=== PATIENT | female | born 1980 | race Caucasian/White ===

== ENCOUNTER → 2016-10-31 | Outpatient (CLI) | payer OTHER | LOC: CIMAGING 15:06 | PROVIDERS: ATTEND Obstetrics & Gynecology | DX: Z33.1 Pregnant state, incidental (principal); N64.52 Nipple discharge | CPT/HCPCS: 76641-PO ==

== ENCOUNTER 2016-11-17 14:53 | Inpatient (IN) | payer OTHER ==
[2016-11-17] MEDS ORDERED: OLIVE OIL 118 ML BTL MISC PRN (15:19)
[2016-11-17] MEDS ORDERED: EPSOM SALT 454 GM TP PRN (15:19)
[2016-11-17] MEDS ORDERED: LIDOCAINE 1% 30 ML SDV SC PRN (15:19)
[2016-11-17] MEDS ORDERED: TERBUTALINE SULFATE 1 MG/ML VIAL IV PRN (15:19)
[2016-11-17] MEDS ORDERED: OXYTOCIN/RINGERS LACTATE 1,000 ML IV PRN (15:19)
[2016-11-17] MEDS ORDERED: LR 1,000 ML IV PRN (15:19)
[2016-11-17 15:39] LABS: % IMMATURE GRANULYOCYTES 0.4 % (0.0-1.1); ABSOLUTE IMMATURE GRANULOCYTES 0.05 10^3/uL (0.00-0.10); ADD DIFF? NO; ADD MORPH? NO; ADD SCAN? NO; ATYPICAL LYMPHOCYTE FLAG 0 (0-99); FRAGMENT RBC FLAG 0 (0-99); HEMATOCRIT 38.4 % (38.0-47.0); HEMOGLOBIN 12.9 g/dL (12.6-16.3); LEFT SHIFT FLG 0 (0-99); LIPEMIA HEMOLYSIS FLAG 80 (0-99); MEAN CELL HEMOGLOBIN 31.1 pg (27.9-34.1); MEAN CELL HEMOGLOBIN CONCENTR. 33.6 g/dL (32.4-36.7); MEAN CELL VOLUME 92.5 fL (81.5-99.8); MEAN PLATELET VOLUME 9.7 fL (8.7-11.7); PLATELET CLUMPS FLAG 0 (0-99); PLATELET COUNT 217 10^3/uL (150-400); RED BLOOD CELL COUNT 4.15 10^6/uL (4.18-5.33); RED CELL DISTRIBUTION WIDTH 13.1 % (11.5-15.2)
[2016-11-17] MEDS ORDERED: AMMONIA AROMATIC 1 EACH AMP IH ONE (15:44)
[2016-11-17] MEDS ORDERED: OLIVE OIL 118 ML BTL ONE (15:44)
[2016-11-17] MEDS ORDERED: LIDOCAINE 1% 30 ML SDV ONE (15:44)
[2016-11-17] MEDS ORDERED: MISOPROSTOL 200 MCG TAB ONE (15:45)
[2016-11-17] MEDS ORDERED: OXYTOCIN 10 UNIT/ML VIAL ONE (15:45)
[2016-11-17] MEDS ORDERED: TERBUTALINE SULFATE 1 MG/ML VIAL ONE (15:45)
[2016-11-17] MEDS ORDERED: OXYTOCIN/RINGERS LACTATE 500 ML IV SCH (16:00)
--- NOTE | 2016-11-17 17:07 | GHP ---
[f rep st] PREOP HISTORY AND PHYSICAL DATE OF ADMISSION: 11/17/2016 ADMISSION DIAGNOSIS: Intrauterine at 37-2/7 weeks' gestation with spontaneous rupture of the membranes. HISTORY OF PRESENT ILLNESS: The patient is a 36-year-old, 2, para 1-0-0 -1, with a last menstrual period of 02/29/2016 and an EDC of 12/06/2016 she reports an episode of a large gush of fluid this morning at 6 a.m. upon waking, and continuing leaking of clear fluid ever since. She has minimal irregular contractions. 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 When she was assessed at [facility] , she had a positive pool, amnio, and fern. Cervix was 2, 90%, -2. heart tones are in the 120s, reactive category 1. She is jem irregularly. Her group B strep is negative. She will be admitted for augmentation of labor due to spontaneous rupture of membranes without active labor. RISK FACTORS: She is Rh negative. She is advanced maternal age. She has had normal genetic testing in this . She has history of a LEEP to her cervix x2 but had a term delivery with her first baby since. She has a history of chronic back pain and bulging disks. No other risk factors. PAST OBSTETRICAL HISTORY: In October 2014 she had a viable female, 6 pounds 11 ounces, vaginal delivery without complications, and this is her 2nd . PAST GYNECOLOGICAL HISTORY: She has had abnormal Pap's and had a LEEP x2 with normal Pap's since her LEEP. No history of any other STDs or other complications. MEDICAL PROBLEMS: Bulging disk in her back. She is managed by a chiropractor. No past surgical history. ALLERGIES: Reglan, unknown reaction. MEDICATIONS: Include vitamins and she was on Zofran p.r.n. in the 1st trimester; none now. LABORATORY DATA: She is A negative, antibody negative, RPR nonreactive, rubella immune, hepatitis negative, HIV negative. Cystic fibrosis, SMA, fragile X and Hoahaoism panel were negative. Pap normal. Gonorrhea and chlamydia normal. Verify normal. 1-hour GTT was normal. GBS was negative. SOCIAL HISTORY: She is . She lives with her and her daughter. 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 She denies tobacco, alcohol, and drug use. FAMILY HISTORY: Her father has chronic hypertension. Paternal grandfather and maternal grandmother had myocardial infarctions. She has cousins with breast and ovarian cancer. That is all for her medical history. OBJECTIVE: VITAL SIGNS: Today she is afebrile. Vital signs are stable. heart tones are 120s, reactive, with moderate variability, category 1. She is jem irregularly. Cervix was 2, 90%, and -2. She is ruptured for clear fluid. ASSESSMENT/PLAN: 36-year-old 2, para 1-0-0-1, at 37-2/7 weeks' gestation, admitted for Pitocin augmentation of labor. The patient will have active labor management. status is reassuring. /[id number]/MODL MTDD
--- NOTE | 2016-11-17 19:22 | OBPROG ---
OBG Progress Note Assessment/Plan: Assessment: 36 y/o @ 37 2/7 weeks with SROM Plan: Will continue pitocin augmentation. status reassuring. 11/17/16 19:21 Subjective: Pt is feeling mild cramping and back pain with contractions. She is still leaking clear fluid. Objective: 11/17/16 15:15 Patient ABO/Rh A NEGATIVE 11/17/16 15:15 - SVE Dilation (cm): 2 Effacement (%): 80 Station: -2 Current Contraction Pattern: Regular (Q 3-4) FHR (bpm): 120 FHR Pattern Variability: Moderate FHR Category: 1 Membranes: SROM Amniotic Fluid Color: Clear ICD10 Worksheet Patient Problems: Problems Problem Status Onset (spontaneous vaginal delivery) Acute
--- NOTE | 2016-11-17 21:43 | OBPROG ---
OBG Progress Note Assessment/Plan: Assessment: 36 y/o @ 37 2/7 weeks with SROM Plan: Will continue pitocin augmentation. Pt desires an epidural now, but anesthesia is occupied in an emergency. She tried NO without relief, will give IV Fentanyl for now to help until she can get her epidural. 11/17/16 19:21 11/17/16 21:41 Subjective: Pt is feeling stronger contractions now, continues to have LOF clear. Objective: 11/17/16 15:15 Patient ABO/Rh A NEGATIVE 11/17/16 15:15 - SVE Dilation (cm): 4 Effacement (%): 90 Station: -2 Current Contraction Pattern: Regular (Q 3-4) FHR (bpm): 120 FHR Pattern Variability: Moderate FHR Category: 1 Membranes: SROM Amniotic Fluid Color: Clear ICD10 Worksheet Patient Problems: Problems Problem Status Onset (spontaneous vaginal delivery) Acute
[2016-11-17] MEDS ORDERED: fentaNYL 100 MCG/2 ML INJ ONE (21:46)
[2016-11-17] MEDS: fentaNYL 100 MCG/2 ML INJ IVP PRN ×2 (21:49→22:32)
[2016-11-17] MEDS ORDERED: PHENYLEPHRINE HCL 100 MCG/ML SYR ONE (22:25)
[2016-11-17] MEDS ORDERED: BUPIVACAINE 0.25% 30 ML SDV ONE (22:25)
[2016-11-17] MEDS ORDERED: fentaNYL 2MCG/ML/BUP 0.1% RTU 100 ML BAG EP ONE (22:25)
--- NOTE | 2016-11-17 23:28 | OBPROC ---
- Labor and Delivery Onset of Contractions Date: 11/17/16 Onset of Contractions Time: 21:37 Onset of Contractions Type: Augmented Rupture of Membranes Date: 11/17/16 Rupture of Membranes Time: 06:15 Rupture of Membranes Type: Spontaneous Amniotic Fluid Color: Clear Dilation Complete Time: 23:10 Delivery Type: Spontaneous Placenta Delivery Date: 11/17/16 Placenta Delivery Time: 23:17 Episiotomy/Laceration: Other (Specify) (intact perineum) EBL: 150 Complications: None - Medications Labor Augmentation/Induction Meds Used: Pitocin Labor Augmentation/Induction Indication: Other (Specify) (prolonged ROM without active labor contractions) Anesthesia: Epidural, IV Sedation, Other (Specify) (nitrous oxide, IV Fentanyl) - Latta Info Infant A Delivery Date: 11/17/16 Delivery Time: 23:13 Sex of Infant: Female Score (1 Min): 9 Score (5 Min): 9
[2016-11-17] MEDS ORDERED: LR 500 ML IV SCH (23:45)
[2016-11-17] MEDS ORDERED: fentaNYL 2MCG/ML/BUP 0.1% RTU 100 ML EP SCH (23:45)
[2016-11-17] MEDS ORDERED: PHENYLEPHRINE HCL 100 MCG/ML SYR IVP PRN (23:55)
[2016-11-17] MEDS ORDERED: ONDANSETRON 4 MG/2 ML VIAL IVP PRN (23:55)
--- NOTE | 2016-11-18 00:01 | PREANESOB ---
Obstetric Pre-Anesthesia Info - General Info Proposed Procedure: Labor and delivery with pitocin. : 2 Para: 1 WBD: 37 - Info Status: Full Term Monitors: External FHR Baseline (bpm): 130 FHR Pattern: Reassuring - Labor Status Cervical Dilation per last OB SVE: 4 Station per last OB SVE: -2 Rupture of Membranes Time: 06:15 Amniotic Fluid Color: Clear Pitocin: In Use Indications for Labor Analgesia: Augmentation of Labor, Pain Control Labor Epidural: Proposed Anesthesia ROS: Prior labor epidural. Allergies/Adverse Reactions: Allergy/AdvReac Type Severity Reaction Status Date / Time metoclopramide HCl Allergy Intermediate Other-Enter Verified 10/12/14 09:02 [facility] Comments Home Medications: Medication Instructions Recorded 1 tab PO DAILY 10/12/14 Visit Medications: Generic Name Dose Route Start Last Admin Trade Name Freq PRN Reason Stop Dose Admin Fentanyl 50 mcg 11/17/16 21:39 11/17/16 22:32 Sublimaze IVP 11/27/16 21:38 50 mcg Q2HRS PRN Administration Pain, Severe Unable to Take PO Lactated Ringer's 1,000 mls @ 0 mls/hr 11/17/16 15:19 11/17/16 16:25 Lr IV 05/16/17 15:18 1,000 mls PRN PRN Administration SEE PROTOCOL CONDITIONS Protocol Per Protocol Oxytocin/Lactated Ringer's 1,000 mls @ 150 mls/hr 11/17/16 15:19 Pitocin 20 Units/Lr (Premix) IV PRN PRN Post- bleeding Oxytocin/Lactated Ringer's 500 mls @ 2 mls/hr 11/17/16 16:00 11/17/16 16:25 Pitocin 30 Units/Lr (Premix) IV 05/16/17 15:59 500 mls CONT MARTINA Administration Ibuprofen 600 mg 11/17/16 15:19 Motrin PO 05/16/17 15:18 Q6HRS PRN post , inflammation Lidocaine HCl 30 ml 11/17/16 15:19 Lidocaine Hcl 1% SC 05/16/17 15:18 ONCE PRN Episiotomy Magnesium Sulfate 454 gm 11/17/16 15:19 Epsom Salt TP 05/16/17 15:18 PRN PRN perineal discomfort Norton Oil 118 ml 11/17/16 15:19 Sweet Oil MISC 05/16/17 15:18 ONCE PRN preneal massage Terbutaline Sulfate 0.25 mg 11/17/16 15:19 Brethine IV 05/16/17 15:18 ONCE PRN Tachysystole Discontinued Medications Generic Name Dose Route Start Last Admin Trade Name Freq PRN Reason Stop Dose Admin Ammonia (Aromatic Spirit) Confirm 11/17/16 15:44 Ammonia Aromatic Administered 11/17/16 15:45 Dose 1 each IH .STK-MED ONE Bupivacaine HCl Confirm 11/17/16 22:25 Sensorcaine 0.25% Sdv Administered 11/17/16 22:26 Dose 30 ml .ROUTE .STK-MED ONE Fentanyl Confirm 11/17/16 21:46 Sublimaze Administered 11/17/16 21:47 Dose 100 mcg .ROUTE .STK-MED ONE Fentanyl/Bupivacaine HCl Confirm 11/17/16 22:25 Fentanyl/Bupivacaine/Ns 2 Mcg/Ml 0.1% (Premix Administered 11/17/16 22:26 Dose 100 ml EP .STK-MED ONE Lidocaine HCl Confirm 11/17/16 15:44 Lidocaine Hcl 1% Administered 11/17/16 15:45 Dose 30 ml .ROUTE .STK-MED ONE Misoprostol Confirm 11/17/16 15:45 Cytotec Administered 11/17/16 15:46 Dose 800 mcg .ROUTE .STK-MED ONE Norton Oil Confirm 11/17/16 15:44 Sweet Oil Administered 11/17/16 15:45 Dose 118 ml .ROUTE .STK-MED ONE Oxytocin Confirm 11/17/16 15:45 Pitocin Administered 11/17/16 15:46 Dose 40 unit .ROUTE .STK-MED ONE Phenylephrine HCl Confirm 11/17/16 22:25 Julio-Synephrine Administered 11/17/16 22:26 Dose 1,000 mcg .ROUTE .STK-MED ONE Terbutaline Sulfate Confirm 11/17/16 15:45 Brethine Administered 11/17/16 15:46 Dose 1 mg .ROUTE .STK-MED ONE - Anesthesia History Response to Local Anesthetics: Normal Anesthesia & Operative History: No Prior Problems - Social History Substance Use/Abuse: Denies - Focused Exam Blood Pressure: 108/61 Heart Rate: 64 Height/Weight (Nursing): Height 162.56 cm Weight 77.111 kg Physical Exam: Within normal limits. ASA Status: II Labs: 11/17/16 15:15 Patient ABO/Rh A NEGATIVE 11/17/16 15:15 - Plan Anesthetic Plan: CSE Consent Signed and on Chart: Yes Patient/Guardian Understands and Agrees to Plan: Yes
--- NOTE | 2016-11-18 00:04 | POSTANESTH ---
Post Anesthetic Evaluation Cardiovascular Status: Normal, Stable Respiratory Status: Normal, Stable, Similar to Pre-op Cond. Level of Consciousness/Mental Status: Can Participate in Eval, Alert and Oriented Pain Control: Adequate, Prn Tx Ordered Nausea/Vomiting Control: Adequate, Prn Tx Ordered Complications Possibly Related to Anesthesia: None Noted (Tolerated CSE well, stable after phenylephrine x 2, comfortable.)
[2016-11-18] MEDS: IBUPROFEN 600 MG TAB PO PRN ×4 (02:13→20:48)
[2016-11-18] MEDS ORDERED: IBUPROFEN 600 MG TAB PO PRN (07:29)
[2016-11-18] MEDS ORDERED: SIMETHICONE 80 MG TAB CHEW PO PRN (07:29)
[2016-11-18] MEDS ORDERED: HYDROCORTISONE 0.5% CREAM TP PRN (07:29)
--- NOTE | 2016-11-18 08:14 | OBPROG ---
OBG Progress Note Assessment/Plan: Assessment: s/p PPD #0.5 - pt is stable Plan: Continue routine care Encourage ambulation Plan for d/c in 24-48 hrs 11/18/16 08:11 Subjective: Pt seen and examined. Doing well, no complaints. Minimal cramping. moderate lochia. going well so far. Objective: 11/17/16 15:15 Patient ABO/Rh A NEGATIVE 11/17/16 15:15 Temp Pulse Resp BP Pulse Ox 36.6 C 56 L 18 85/60 L 11/18/16 02:28 11/18/16 02:28 11/18/16 02:28 11/18/16 02:28 Uterine Position/Fundal Height: Umbilicus -2 Uterine Tone: Firm - Physical Exam General Appearance: WD/WN, alert, no apparent distress Respiratory: lungs clear, normal breath sounds Cardiac/Chest: regular rate, rhythm Abdomen: normal bowel sounds, non-tender, soft, flatus (+) Genitourinary: lochia (moderate) Extremities: non-tender, normal inspection Neuro/Psych: alert, normal mood/affect, oriented x 3 ICD10 Worksheet Patient Problems: Problems Problem Status Onset (spontaneous vaginal delivery) Acute
[2016-11-18] MEDS: DOCUSATE SODIUM 100 MG CAP PO PRN ×2 (08:22→20:48)
[2016-11-18] MEDS: HYDROCODONE/APAP 5/325 TAB PO PRN ×3 (13:30→23:24)
[2016-11-19] MEDS: IBUPROFEN 600 MG TAB PO PRN ×2 (03:17→09:44)
[2016-11-19] MEDS: HYDROCODONE/APAP 5/325 TAB PO PRN ×2 (03:17→08:19)
[2016-11-19 10:02] VITALS: BP 98/68; PULSE 83; RESP 18; TEMP 98.2; O2SAT 95
--- NOTE | 2016-11-19 10:14 | SOAPPROG ---
SOAP Progress Note Assessment/Plan: Assessment: 36y/o day 2 s/p 11/17/16, stable. Mom Rh-neg, Baby Rh-neg Plan: Con't care prior to discharge Rev PP warning s/s RTC @ 4 & 6wks PP Discharge to home 11/19/16 10:10 Subjective: Pt resting in bed with on chest. Reports pain well-controlled. going well. Lochia light. Voiding without difficulty. Passing flatus, denies BM. Denies feelings of depression/blues. Declines need for BC prior to d/c. Objective: Vital Signs Temp Pulse Resp BP Pulse Ox 36.8 C 83 18 98/68 L 95 11/19/16 08:00 11/19/16 08:00 11/19/16 08:00 11/19/16 08:00 11/19/16 08:00 Laboratory Results 11/17/16 15:15 11/18/16 11/19/16 11/20/16 05:59 05:59 05:59 Output Total 150 Balance -150 Physical Exam - Physical Exam General Appearance: alert, no apparent distress Respiratory: lungs clear, normal breath sounds Cardiac/Chest: regular rate, rhythm Abdomen: non-tender, soft, other (fundus firm @U-2) Pelvic Exam: vaginal bleeding (lochia light) Skin: normal color, warm/dry Extremities: normal range of motion Neuro/Psych: alert, normal mood/affect, oriented x 3 ICD10 Worksheet Patient Problems: Problems Problem Status Onset (spontaneous vaginal delivery) Acute
== END 2016-11-19 12:40 | disposition home or self-care (01) | DRG 775 ==
LOC: FLD 14:53 → FOB 11-18 00:30
PROVIDERS: ADMIT Obstetrics & Gynecology; ATTEND Obstetrics & Gynecology
PROC: 3E033VJ Introduction of Other Hormone into Peripheral Vein, Percutaneous Approach (ICD-10-PCS; principal; 2016-11-17)
PROC: 10E0XZZ Delivery of Products of Conception, External Approach (ICD-10-PCS; principal; 2016-11-17)
DX: O42.02 Full-term premature rupture of membranes, onset of labor within 24 hours of rupture (principal); Z3A.37 37 weeks gestation of pregnancy; Z37.0 Single live birth
CPT/HCPCS: J2370; J2590; J3010; J3105

== ENCOUNTER → 2016-11-29 | Outpatient (CLI) | payer OTHER | LOC: FLACT 10:00 | PROVIDERS: ATTEND Obstetrics & Gynecology | DX: O92.79 Other disorders of lactation (principal); N64.59 Other signs and symptoms in breast | CPT/HCPCS: G0463 ==

== ENCOUNTER → 2016-12-22 | Outpatient (CLI) | payer OTHER | LOC: FLACT 15:02 | PROVIDERS: ATTEND Obstetrics & Gynecology | DX: Z39.1 Encounter for care and examination of lactating mother (principal) | CPT/HCPCS: G0463 ==